=== PATIENT | female | born 1995 | race Hispanic/Latino ===

== ENCOUNTER 2019-07-15 19:37 | Emergency (ER) | payer SELFPAY ==
--- OUTSIDE RECORDS SUMMARY | 2019-07-15 19:40 | XMS REPORT ---
Author Author [facility] Address Unknown Phone Unavailable Care Team Providers Care Financial Reporting Director Name Role Phone Unavailable Unavailable Payers Payer Name Policy Type Policy Number Effective Date Expiration Date Problems This patient has no known problems. Allergies, Adverse Reactions, Alerts Allergy Name Allergy Type Status Severity Reaction(s) Onset Date Inactive Date Treating Clinician Comments No Known Allergies DA Active U 2018-06-08 00:00:00 Medications This patient has no known medications.
[2019-07-15] MEDS ORDERED: CLINDAMYCIN HC300 MG PO (21:46)
[2019-07-15] MEDS ORDERED: TYLENOL WITH C1 EACH PO (21:46)
== END 2019-07-15 20:52 | disposition left against medical advice (07) ==
LOC: FSED 19:37
DX: M54.5 Low back pain (principal)

== ENCOUNTER 2019-07-15 21:08 | Emergency (ER) | payer OTHER ==
[~2019-07-15] VITALS: Ht 160 cm; Wt 65.8 kg
[2019-07-15] MEDS ORDERED: HYDROCODONE/APAP 7.5MG-325MG 1 EA TAB PO STA (21:44)
[2019-07-15] MEDS ORDERED: LIDOCAINE HCL 1% 2 ML AMP INJ ONE (21:45)
[2019-07-15] MEDS ORDERED: CLINDAMYCIN HC300 MG PO (21:46)
[2019-07-15] MEDS ORDERED: TYLENOL WITH C1 EACH PO (21:46)
[2019-07-15 22:49] VITALS: BP 122/75
== END 2019-07-15 22:54 | disposition home or self-care (01) ==
LOC: ER 21:08
DX: L05.01 Pilonidal cyst with abscess (principal)
CPT/HCPCS: 10081; 99283; J2001